=== PATIENT | female | born 1955 | race Caucasian/White ===

== ENCOUNTER 2018-02-13 10:44 | Inpatient (IN) ==
[2018-02-13] MEDS ORDERED: Propofol 1000 mg/100 ml Inj 1,000 MG/100 ML BOTTLE ONE (10:56)
[2018-02-13 11:11] LABS: Eos # (Auto) 0.2 th/mm3 (0.0-0.4); Hematocrit 28.9 % (35.0-46.0); Hemoglobin 9.8 gm/dL (11.6-15.3); Lymph # (Auto) 1.3 th/mm3 (1.0-4.8); Lymph % (Auto) 30.3 % (9.0-44.0); Mean Corpuscular Volume 85.3 fL (80.0-100.0); Mono # (Auto) 0.2 th/mm3 (0.0-0.9); Mono % (Auto) 4.3 % (0.0-8.0); Neut # (Auto) 2.5 th/mm3 (1.8-7.7); Neut % (Auto) 59.4 % (16.0-70.0); Platelet Count 115 th/mm3 (150-450); Red Blood Count 3.38 mil/mm3 (4.00-5.30); Red Cell Distribution Width 13.4 % (11.6-17.2); White Blood Count 4.3 th/mm3 (4.0-11.0)
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
[2018-02-13 11:28] LABS: Activated Partial Thrombo Time 25.7 sec (24.3-30.1); INR 1.1 Ratio; Prothrombin Time 11.1 sec (9.8-11.6)
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
[2018-02-13] MEDS ORDERED: Post-op Orders (for Pharmacy) OTHER ONE (11:51)
[2018-02-13] MEDS ORDERED: Bisacodyl 10 MG Supp RECTAL PRN (11:51)
[2018-02-13] MEDS ORDERED: Naloxone Inj 0.4 MG/ML Vial IV.PUSH PRN (11:51)
[2018-02-13] MEDS ORDERED: fentaNYL 10 mcg/mL Premix Drip 2,500 MCG/250 ML BAG IV.SIG PRN (11:54)
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
[2018-02-13] MEDS: Sod Chloride 0.9% Inj 1,000 ML IV.CONT SCH (12:18)
[2018-02-13] MEDS: Pantoprazole Inj 40 MG Vial IV.PUSH SCH (12:38)
[2018-02-13] MEDS: Propofol 1000 mg/100 ml Inj 1,000 MG/100 ML BOTTLE IV.CONT PRN ×3 (12:38→21:03)
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
[2018-02-13] MEDS ORDERED: Potassium Chlor 40 mEq Premix 40 MEQ/100 ML PIGGYBACK IV.SIG PRN ×2 (14:04)
[2018-02-13] MEDS ORDERED: Potassium Chlor 20 mEq Premix 20 MEQ/100 ML PIGGYBACK IV.SIG PRN (14:04)
[2018-02-13] MEDS ORDERED: Magnesium Sulfate Inj 4 GM in Sodium Chlor 0.9% Inj 92 ML IV.SIG PRN (14:04)
[2018-02-13] MEDS ORDERED: Potassium Phosphate Inj 30 MMOL in Sodium Chlor 0.9% Inj 250 ML IV.SIG PRN (14:04)
[2018-02-13] MEDS ORDERED: Magnesium Oxide 400 MG Tablet PO PRN (14:04)
[2018-02-13] MEDS ORDERED: Sodium Phosphate Inj 30 MMOL in Sodium Chlor 0.9% Inj 250 ML IV.SIG PRN (14:04)
[2018-02-13] MEDS ORDERED: Potassium Chloride 25 MEQ Effervescent Tablet PO PRN (14:04)
[2018-02-13] MEDS ORDERED: Potassium Phosphate 500 MG Soluble Tablet PO PRN ×2 (14:04)
[2018-02-13] MEDS ORDERED: Magnesium Sulfate Inj 2 GM in Sodium Chlor 0.9% Inj 96 ML IV.SIG PRN (14:04)
[2018-02-13] MEDS ORDERED: Metoprolol Inj 5 MG/5 ML Vial IV.PUSH SCH (15:00)
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
[2018-02-13] MEDS: Potassium Chlor 20 mEq Premix 20 MEQ/100 ML PIGGYBACK IV.SIG PRN ×4 (16:00→22:23)
[2018-02-13 16:27] LABS: Hematocrit 35.1 % (35.0-46.0); Hemoglobin 11.8 gm/dL (11.6-15.3); Mean Corpuscular HGB Conc 33.7 % (32.0-36.0); Mean Corpuscular Hemoglobin 28.5 pg (27.0-34.0); Mean Corpuscular Volume 84.6 fL (80.0-100.0); Mean Platelet Volume 9.9 fL (7.0-11.0); Platelet Count 160 th/mm3 (150-450); Red Blood Count 4.15 mil/mm3 (4.00-5.30); Red Cell Distribution Width 14.1 % (11.6-17.2); White Blood Count 11.6 th/mm3 (4.0-11.0)
[2018-02-13] MEDS: Senna/Docusate Sodium 8.6/50 MG Tablet PO SCH (21:02)
[2018-02-14] MEDS: Sod Chloride 0.9% Inj 1,000 ML IV.CONT SCH ×3 (01:21→12:54)
[2018-02-14] MEDS: Propofol 1000 mg/100 ml Inj 1,000 MG/100 ML BOTTLE IV.CONT PRN ×3 (01:35→08:21)
--- NOTE | 2018-02-14 04:35 | XR ---
EXAM DATE: 02/14/2018 12:00 AM EDT AGE/SEX: 62 years / Female INDICATIONS: Shortness of breath. CLINICAL DATA: This is the patient's subsequent encounter. Patient reports that signs and symptoms h ave been present for 2 days and indicates a pain score of Nonresponsive. MEDICAL/SURGICAL HISTORY: . Unobtainable. . Right below the knee amputation. COMPARISON: . FINDINGS: Endotracheal tube and nasogastric tube are stable in good position. Lungs remain symmetrically aerate d and grossly clear. Cardiac contours are unchanged. CONCLUSION: Stable satisfactory appearance Electronically signed by: Vince Chiu MD 02/14/2018 4:34 AM EDT
[2018-02-14 05:45] LABS: ABG Base Excess 0.2 mmol/L (-2-2); ABG PCO2 36 mmHg (38-42); ABG PO2 104 mmHg (61-120)
[2018-02-14 05:58] LABS: Baso % (Auto) 0.4 % (0.0-2.0); Eos # (Auto) 0.1 th/mm3 (0.0-0.4); Eos % (Auto) 1.2 % (0.0-4.0); Hematocrit 37.9 % (35.0-46.0); Hemoglobin 13.1 gm/dL (11.6-15.3); Lymph # (Auto) 1.1 th/mm3 (1.0-4.8); Lymph % (Auto) 10.1 % (9.0-44.0); Mean Corpuscular HGB Conc 34.6 % (32.0-36.0); Mean Corpuscular Hemoglobin 29.1 pg (27.0-34.0); Mean Corpuscular Volume 84.1 fL (80.0-100.0); Mean Platelet Volume 9.9 fL (7.0-11.0); Mono # (Auto) 0.7 th/mm3 (0.0-0.9); Mono % (Auto) 6.6 % (0.0-8.0); Neut # (Auto) 8.6 th/mm3 (1.8-7.7); Neut % (Auto) 81.7 % (16.0-70.0); Platelet Count 151 th/mm3 (150-450); Red Blood Count 4.51 mil/mm3 (4.00-5.30); Red Cell Distribution Width 13.6 % (11.6-17.2); White Blood Count 10.6 th/mm3 (4.0-11.0)
[2018-02-14 06:18] LABS: Calcium 8.2 mg/dL (8.5-10.1); Carbon Dioxide 24.7 meq/L (21.0-32.0); Potassium 4.1 meq/L (3.5-5.1)
[2018-02-14] MEDS ORDERED: Chlorhexidine 0.12% Oral Kit 15 ML UDC OROPHARYNG SCH (08:00)
[2018-02-14] MEDS: Senna/Docusate Sodium 8.6/50 MG Tablet PO SCH ×2 (08:22→20:27)
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
[2018-02-14] MEDS ORDERED: Oral Hygiene Kit OROPHARYNG SCH (12:00)
[2018-02-14] MEDS: Pantoprazole Inj 40 MG Vial IV.PUSH SCH (12:51)
[2018-02-14] MEDS: Gabapentin 300 MG Capsule PO SCH ×2 (14:42→20:27)
[2018-02-14] MEDS: Methocarbamol 500 MG Tablet PO SCH (17:40)
[2018-02-15 04:27] LABS: Baso # (Auto) 0.1 th/mm3 (0.0-0.2); Baso % (Auto) 0.7 % (0.0-2.0); Eos # (Auto) 0.1 th/mm3 (0.0-0.4); Eos % (Auto) 0.8 % (0.0-4.0); Hematocrit 37.2 % (35.0-46.0); Hemoglobin 12.5 gm/dL (11.6-15.3); Lymph # (Auto) 1.1 th/mm3 (1.0-4.8); Lymph % (Auto) 13.1 % (9.0-44.0); Mean Corpuscular HGB Conc 33.6 % (32.0-36.0); Mean Corpuscular Hemoglobin 28.6 pg (27.0-34.0); Mean Platelet Volume 10.3 fL (7.0-11.0); Mono # (Auto) 0.5 th/mm3 (0.0-0.9); Mono % (Auto) 5.8 % (0.0-8.0); Neut # (Auto) 6.6 th/mm3 (1.8-7.7); Neut % (Auto) 79.6 % (16.0-70.0); Platelet Count 160 th/mm3 (150-450); Red Blood Count 4.38 mil/mm3 (4.00-5.30); Red Cell Distribution Width 13.7 % (11.6-17.2); White Blood Count 8.3 th/mm3 (4.0-11.0)
[2018-02-15 04:43] LABS: Calcium 8.2 mg/dL (8.5-10.1); Carbon Dioxide 27.8 meq/L (21.0-32.0); Potassium 3.1 meq/L (3.5-5.1)
[2018-02-15] MEDS: Levothyroxine 75 MCG Tablet PO SCH (05:30)
[2018-02-15] MEDS: Potassium Chlor 20 mEq Premix 20 MEQ/100 ML PIGGYBACK IV.SIG PRN ×4 (08:28→13:31)
[2018-02-15] MEDS: Senna/Docusate Sodium 8.6/50 MG Tablet PO SCH ×2 (08:29→20:35)
[2018-02-15] MEDS: Gabapentin 300 MG Capsule PO SCH (08:29)
[2018-02-15] MEDS: Methocarbamol 500 MG Tablet PO SCH ×3 (08:29→19:00)
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
[2018-02-15] MEDS: Pantoprazole Inj 40 MG Vial IV.PUSH SCH (13:11)
[2018-02-15] MEDS: Sod Chloride 0.9% Inj 1,000 ML IV.CONT SCH (13:12)
[2018-02-15] MEDS ORDERED: Sodium Chloride 0.9% 2 ML Flush PRN IV.FLUSH (15:06)
[2018-02-15] MEDS: Sodium Chloride 0.9% 2 ML Flush BID IV.FLUSH SCH (20:35)
[2018-02-16] MEDS: Levothyroxine 75 MCG Tablet PO SCH ×2 (04:32→05:33)
[2018-02-16] MEDS: Sodium Chloride 0.9% 2 ML Flush BID IV.FLUSH SCH (08:45)
[2018-02-16] MEDS: Senna/Docusate Sodium 8.6/50 MG Tablet PO SCH (08:51)
[2018-02-16] MEDS ORDERED: Enoxaparin Inj 30 MG/0.3 ML Syringe SQ SCH (09:45)
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
[2018-02-16] MEDS: Methocarbamol 500 MG Tablet PO SCH ×2 (11:43→14:57)
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
[2018-02-16] MEDS: Sod Chloride 0.9% Inj 1,000 ML IV.CONT SCH (12:27)
[2018-02-16 13:33] VITALS: BP 153/77; PULSE 93; RESP 19; TEMP 97.8; O2SAT 91
[2018-02-16] MEDS: Pantoprazole Inj 40 MG Vial IV.PUSH SCH (14:57)
== END 2018-02-16 15:42 ==
LOC: NEPI 10:44 → EDBD 11:28 → NEDA 11:28 → N03 11:40 → N06 02-15 14:45
PROVIDERS: ADMIT Surgery; ATTEND Surgery